=== PATIENT | female | born 1945 | race Caucasian/White ===

== ENCOUNTER → 2018-01-04 01:38 | Outpatient (CLI) | payer MEDICARE, SELFPAY ==
--- NOTE | 2018-01-04 13:03 | DI.REPORT_ITS ---
SYMPTOM/DIAGNOSIS: SCREENING, [facility] Z00.00 BILATERAL SCREENING MAMMOGRAM: Mammograms were interpreted according to the usual protocol including computer analysis with CAD system, tomosynthesis and C view imaging. Comparison is made with exams from 2013 through 2016. The breasts are composed of scattered fibroglandular densities, breast density category B. There are no suspicious masses or suspicious microcalcifications. Benign calcifications are again noted bilaterally. IMPRESSION: Category 2-B, negative mammogram with benign findings. Routine screening is recommended. SA ASSESSMENT OF FINDINGS: Negative with benign findings. Category 2. Patient will receive a letter notifying them of these results. BI-RADS category B. There are scattered areas of fibroglandular density.
== END ==
PROVIDERS: PCP Family Medicine; Visit Provider Family Medicine
DX: Z12.31 Encounter for screening mammogram for malignant neoplasm of breast (principal)
CPT/HCPCS: 77063; 77067

== ENCOUNTER 2019-01-26 13:12 | Outpatient (CLI) | payer MEDICARE, SELFPAY ==
[2019-01-26 13:45] LABS: HCT 39.6 % (36.0-46.0); HGB 12.8 g/dL (12.0-15.5); Mean Corp. HGB Concentration 32.3 g/dL (32.0-36.0); Mean Corpuscular Hemoglobin 29.2 pg (27.0-33.0); Mean Corpuscular Volume 90.2 fL (80-95); Mean Platelet Volume 11.3 fL (8.0-11.0); Platelet Count 257 x1000/uL (130-400); RBC 4.39 m/cumm (4.00-5.20); RBC Distribution Width 13.5 % (11.7-14.6); White Blood Cell Count 10.48 k/cumm (4.4-10.8)
[2019-01-26 14:03] LABS: Hemoglobin A1C 5.9 % (4.5-6.2)
[2019-01-26 14:28] LABS: ALT 29 U/L (14-59); AST 18 U/L (15-37); Alkaline Phosphatase 96 U/L (46-116); Anion Gap 9.1 mmol/L (3-11); BUN 17 mg/dL (7-18); Bilirubin, Total 0.2 mg/dL (0.2-1.0); CO2 29.9 mmol/L (21.0-32.0); CREATININE 0.68 mg/dL (0.55-1.02); Calcium 9.5 mg/dL (8.5-10.1); Chloride 105 mmol/L (98-107); Glucose 86 mg/dL (70-100); Magnesium 1.6 mg/dL (1.8-2.4); PHOSPHORUS 3.6 mg/dL (2.6-4.7); Potassium 3.9 mmol/L (3.5-5.1); Sodium 144 mmol/L (136-145); Uric Acid 5.9 mg/dL (2.6-6.0)
[2019-01-27 11:05] LABS: Parathyroid Hormone,Intact 49 pg/ml (19-88)
== END 2019-01-26 13:32 ==
PROVIDERS: PCP Family Medicine; Visit Provider Family Medicine
DX: E04.1 Nontoxic single thyroid nodule (principal); E21.0 Primary hyperparathyroidism; R73.03 Prediabetes; E53.8 Deficiency of other specified B group vitamins; R27.0 Ataxia, unspecified
CPT/HCPCS: 36415; 80053; 85027; 83036; 83735; 83970; 84100; 84550

== ENCOUNTER 2019-03-17 01:36 | Outpatient (CLI) | payer MEDICARE, SELFPAY ==
--- NOTE | 2019-03-17 11:22 | DI.MAMMO_ITS ---
EXAM: MAMMO SCREENING CLINICAL HISTORY: SCREENING, Z12.31 TECHNIQUE: Mammograms were interpreted according to the usual protocol including computer analysis w [employer] CAD system, tomosynthesis and C-view imaging. COMPARISON: [id number] FINDINGS: The breasts are composed of scattered areas of fibroglandular density, breast density category B. No suspicious masses or microcalcifications are seen. There has been no significant change when compared with the prior examinations. IMPRESSION: Category 1, negative mammogram. Yearly screening mammography is recommended. BI-RADS Cat 1 - Negative Breast Density - Category B - Scattered areas of fibroglandular density
== END 2019-03-17 01:56 ==
PROVIDERS: PCP Family Medicine; Visit Provider Family Medicine
DX: Z12.31 Encounter for screening mammogram for malignant neoplasm of breast (principal)
CPT/HCPCS: 77063; 77067

== ENCOUNTER 2019-07-25 22:10 | Outpatient (REF) | payer MEDICARE, SELFPAY ==
[2019-07-25 19:09] LABS: Hemoglobin A1C 5.8 % (3.8-5.6)
[2019-07-25 19:29] LABS: Vitamin D 25 Total 42.1 ng/ml (30-100)
[2019-07-25 19:32] LABS: Anion Gap 10.2 mmol/L (3-11); BUN 17 mg/dL (7-18); CO2 28.8 mmol/L (21.0-32.0); CREATININE 0.64 mg/dL (0.55-1.02); Calcium 9.9 mg/dL (8.5-10.1); Chloride 106 mmol/L (98-107); Glucose 88 mg/dL (74-106); Potassium 3.9 mmol/L (3.5-5.1); Sodium 145 mmol/L (136-145); Vitamin B12 899 pg/mL (193-986)
== END 2019-07-25 22:30 ==
LOC: NCHCN 22:10
PROVIDERS: PCP Family Medicine; Visit Provider Family Medicine
DX: E53.8 Deficiency of other specified B group vitamins (principal); R73.03 Prediabetes; I10 Essential (primary) hypertension; E55.9 Vitamin D deficiency, unspecified
CPT/HCPCS: 80048; 82306; 82607; 83036

== ENCOUNTER 2020-01-20 09:28 | Outpatient (REF) | payer MEDICARE, SELFPAY ==
[2020-01-20 17:13] LABS: BUN 16 mg/dL (7-18); CREATININE 0.67 mg/dL (0.55-1.02); Chloride 106 mmol/L (98-107); Glucose 91 mg/dL (74-106); Potassium 4.2 mmol/L (3.5-5.1); Sodium 143 mmol/L (136-145); TSH (W/Ref FT4) 2.06 uIU/mL (0.36-3.74)
[2020-01-20 17:14] LABS: Hemoglobin A1C 5.5 % (<5.7)
== END 2020-01-20 09:48 ==
LOC: NCHCN 09:28
PROVIDERS: PCP Family Medicine; Visit Provider Family Medicine
DX: E04.1 Nontoxic single thyroid nodule (principal); E21.0 Primary hyperparathyroidism; R73.03 Prediabetes
CPT/HCPCS: 80048; 83036; 84443

== ENCOUNTER 2021-07-31 17:27 | Outpatient (REF) | payer MEDICARE, SELFPAY ==
[2021-07-31 14:34] LABS: HCT 40.7 % (36.0-46.0); HGB 12.8 g/dL (11.2-15.7); MCH 28.3 pg (27.0-33.0); MCHC 31.4 % (32.0-36.0); MCV 89.8 fL (80-95); MPV 12.4 fL (8.0-11.0); Platelet Count 252 10^3/uL (130-400); RBC 4.53 10^6/uL (3.93-5.22); RDW 13.7 % (11.7-14.6); RDW-SD 45.3 fL; WBC 7.42 10^3/uL (4.4-10.8)
[2021-07-31 15:03] LABS: Anion Gap 7.4 mmol/L (3-11); BUN 21 mg/dL (7-18); CO2 27.6 mmol/L (21.0-32.0); CREATININE 0.7 mg/dL (0.55-1.02); Calcium 9.8 mg/dL (8.5-10.1); Chloride 110 mmol/L (98-107); Glucose 92 mg/dL (74-106); PHOSPHORUS 3.2 mg/dL (2.6-4.7); Potassium 4.3 mmol/L (3.5-5.1); Sodium 145 mmol/L (136-145); Uric Acid 6.8 mg/dL (2.6-6.0)
[2021-07-31 15:07] LABS: Hemoglobin A1C 5.7 % (<5.7)
[2021-07-31 16:02] LABS: Vitamin B12 987 pg/mL (193-986)
[2021-08-01 00:44] LABS: Vitamin D 25 Total 45.2 ng/mL (30-100)
[2021-08-01 10:26] LABS: Parathyroid Hormone,Intact 71 pg/mL (19-88)
== END 2021-07-31 17:28 | disposition home or self-care (01) ==
LOC: NCHCN 17:27
PROVIDERS: PCP Family Medicine; Visit Provider Family Medicine
DX: R73.03 Prediabetes (principal); E21.0 Primary hyperparathyroidism; E53.8 Deficiency of other specified B group vitamins; I10 Essential (primary) hypertension; E04.1 Nontoxic single thyroid nodule; M10.9 Gout, unspecified
CPT/HCPCS: 80048; 82306; 85027; 82607; 83036; 83970; 84100; 84550

== ENCOUNTER 2021-08-30 00:21 | Outpatient (CLI) | payer MEDICARE, SELFPAY ==
--- NOTE | 2021-08-30 | DI.DEXA_ITS ---
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 No compression deformities identified. Left hip: Total T-Score: -0.9 Total Z-Score: 0.9 T- and Z-scores: Within normal limits. Lumbar Spine: Total T-Score: 0.4 Total Z-Score: 2.8 T- and Z-scores: Within normal limits. IMPRESSION: No evidence of osteoporosis.
--- NOTE | 2021-08-30 | DI.MAMMO_ITS ---
Exam(s) MAMMO SCREENING EXAM: MAMMO SCREENING CLINICAL HISTORY: SCREENING, Z12.31 TECHNIQUE: Bilateral full field digital CC and MLO mammographic images were obtained with 3D tomosyn thesis and utilizing computer aided detection (CAD). COMPARISON: Available for comparison. FINDINGS: Masses/Architectural Distortion: None seen. Microcalcifications: No suspicious pleomorphic-type are seen. Benign type calcifications are seen in both breasts. Skin Thickening/Nipple Retraction: None. IMPRESSION: 1. No significant interval change with no specific features of malignancy noted. 2. Unless there is more urgent need, screening mammography is recommended, as per [employer] guidelines. BI-RADS Category 2 - Benign Findings Breast Density - Category B - Scattered areas of fibroglandular density Breast density category C or D implies that the patient has dense breast tissue. Dense breast tissue is very common and is not abnormal but dense breast tissue can make it harder to find cancer on a ma mmogram. Also, dense breast tissue may increase their breast cancer risk. This information about the result of the mammogram report was provided to the patient to raise their awareness. Use this report when you speak with the patient about their risks for breast cancer, which includes their family hist ory. At that time, you may recommend for more screening tests (Ultrasound or MRI) as they might be us eful based on their risk. A negative radiographic report should not delay biopsy if a dominant or clinically suspicious mass is present. Up to ten percent of cancers are not identified on mammography. A negative report may reinforce clinical impression. Adenosis and dense breasts may obscure an underlying neoplasm. False positive reports average 6 to 10%. Patient will receive a letter notifying them of these results.
== END 2021-08-30 00:41 ==
PROVIDERS: PCP Family Medicine; Visit Provider Family Medicine
DX: Z12.31 Encounter for screening mammogram for malignant neoplasm of breast (principal); E21.0 Primary hyperparathyroidism; Z13.820 Encounter for screening for osteoporosis
CPT/HCPCS: 77063; 77067; 77080

== ENCOUNTER 2022-07-31 10:12 | Outpatient (REF) | payer MEDICARE, SELFPAY ==
[2022-08-01 11:07] LABS: Anion Gap 5.5 mmol/L (3-11); BUN 16 mg/dL (7-18); CO2 29.5 mmol/L (21.0-32.0); CREATININE 0.7 mg/dL (0.55-1.02); Calcium 10.2 mg/dL (8.5-10.1); Chloride 107 mmol/L (98-107); Estimated GFR 89.58 (mL/min/1.73m2); Glucose 87 mg/dL (74-106); Potassium 4.2 mmol/L (3.5-5.1); Sodium 142 mmol/L (136-145)
[2022-08-01 11:13] LABS: Hemoglobin A1C 5.5 % (<5.7)
== END 2022-07-31 10:13 | disposition home or self-care (01) ==
LOC: NCHCN 10:12
PROVIDERS: PCP Family Medicine; Visit Provider Family Medicine
DX: I10 Essential (primary) hypertension (principal); R73.03 Prediabetes
CPT/HCPCS: 80048; 83036

== ENCOUNTER 2023-01-09 09:39 | Outpatient (REF) | payer MEDICARE, SELFPAY ==
[2023-01-09 17:09] LABS: Anion Gap 8.8 mmol/L (3-11); BUN 13 mg/dL (7-18); CO2 29.2 mmol/L (21.0-32.0); CREATININE 0.6 mg/dL (0.55-1.02); Calcium 9.9 mg/dL (8.5-10.1); Chloride 107 mmol/L (98-107); Estimated GFR 92.39 (mL/min/1.73m2); Glucose 86 mg/dL (74-106); Potassium 4.2 mmol/L (3.5-5.1); Sodium 145 mmol/L (136-145)
== END 2023-01-09 09:40 | disposition home or self-care (01) ==
LOC: NCHCN 09:39
PROVIDERS: PCP Family Medicine; Visit Provider Family Medicine
DX: E83.52 Hypercalcemia (principal); I10 Essential (primary) hypertension; R73.03 Prediabetes
CPT/HCPCS: 80048

== ENCOUNTER → 2023-05-26 01:42 | Outpatient (CLI) | payer MEDICARE, SELFPAY ==
--- NOTE | 2023-05-26 14:06 | DI.MAMMO_ITS ---
Exam(s) MAMMO SCREENING EXAM: MAMMO SCREENING CLINICAL HISTORY: SCREENING, Z12.31. TECHNIQUE: Bilateral full field digital CC and MLO mammographic images were obtained with 3D tomosyn thesis and utilizing computer aided detection (CAD). COMPARISON: Prior mammograms were reviewed. FINDINGS: No new findings in the right breast. In the left breast there is a E 5 x 4 mm asymmetric density located 3 cm in from the nipple on the ML O view. Previously present. Spot compression view and ultrasound recommended. There are no malignant-appearing microcalcification groups. Scattered benign-appearing calcification s are again noted in both breasts. There is no significant architectural distortion nor skin thickening-retraction. IMPRESSION: 1. No radiographic evidence of malignancy in the right breast. 2. Asymmetric density-possible nodule in the left breast as described above. Recommend spot compress ion left breast MLO view and breast ultrasound. BI-RADS Category 0 - Assessment Incomplete: Need additional imaging evaluation Breast Density - Category B - Scattered areas of fibroglandular density Breast density Category C or D implies that the patient has dense breast tissue. Dense breast tissue can make it harder to find cancer on a mammogram. Dense breast tissue is also associated with an incr eased risk of breast cancer. This information about the result of the mammogram report was provided to the patient to raise their awareness. Use this report when you speak with the patient about their risks for breast cancer, which includes their family history. At that time, you may recommend additional screening tests (Ultrasoun d or MRI) as these tests may add significant information. A negative radiographic report should not delay biopsy if a dominant or clinically suspicious mass is present. Up to ten percent of cancers are not identified on mammography. A negative report may reinforce clinical impression. Adenosis and dense breasts may obscure an underlying neoplasm. False positive reports average 6 to 10%. Patient will receive a letter notifying them of these results.
== END ==
PROVIDERS: PCP Family Medicine; Visit Provider Family Medicine
DX: Z12.31 Encounter for screening mammogram for malignant neoplasm of breast (principal); R92.8 Other abnormal and inconclusive findings on diagnostic imaging of breast
CPT/HCPCS: 77063; 77067

== ENCOUNTER → 2023-05-28 02:35 | Outpatient (CLI) | payer MEDICARE, SELFPAY ==
--- NOTE | 2023-05-28 | DI.US_ITS ---
Exam(s) MAMMO SCREEN CALL BACK UNI US BREAST LT COMPLETE EXAM: MAMMO SCREEN CALL BACK UNI-LEFT AND COMPLETE LEFT BREAST ULTRASOUND CLINICAL HISTORY: F/U MAMMO, R92.8.ASYMMETRIC DENSITY,? NODULE. TECHNIQUE: Unilateral LEFT BREAST spot mammographic images obtained with 3D tomosynthesisand [employer]izi ng computer aided detection (CAD). . Complete LEFT breast Ultrasound was also performed, including all 4 quadrants, the retroareolar regio n, and the ipsilateral axilla. COMPARISON: Prior mammograms were reviewed. This additional imaging was performed due to findings described on the recent screening mammogram of 05/26/2023. FINDINGS: DIAGNOSTIC MAMMOGRAM: Additional mammographic views performed todayrender this area less concerning and similar in appearan ce to prior mammograms. COMPLETE LEFT BREAST ULTRASOUND: Ultrasound performed today reveals no significant focal findings in all 4 quadrants. Scanning of the ipsilateral axilla reveals no significant adenopathy. IMPRESSION: 1. No radiographic evidence of malignancy. 2. No significant findings on left breast ultrasound Appropriate follow-up is to keep this patient on her yearly mammogram schedule, with earlier imaging if a self detected breast change is noted.. The patient was informed of these findings and recommendations by myself prior to leaving the departm ent today. BI-RADS Category 2 - Benign Findings Breast Density - Category B - Scattered areas of fibroglandular density Breast density Category C or D implies that the patient has dense breast tissue. Dense breast tissue can make it harder to find cancer on a mammogram. Dense breast tissue is also associated with an incr eased risk of breast cancer. This information about the result of the mammogram report was provided to the patient to raise their awareness. Use this report when you speak with the patient about their risks for breast cancer, which includes their family history. At that time, you may recommend additional screening tests (Ultrasoun d or MRI) as these tests may add significant information. A negative radiographic report should not delay biopsy if a dominant or clinically suspicious mass is present. Up to ten percent of cancers are not identified on mammography. A negative report may reinforce clinical impression. Adenosis and dense breasts may obscure an underlying neoplasm. False positive reports average 6 to 10%. Patient will receive a letter notifying them of these results.
== END ==
PROVIDERS: PCP Family Medicine; Visit Provider Family Medicine
DX: R92.8 Other abnormal and inconclusive findings on diagnostic imaging of breast (principal); Z12.31 Encounter for screening mammogram for malignant neoplasm of breast
CPT/HCPCS: 76642; 77063; 77067

== ENCOUNTER 2023-11-18 15:55 | Outpatient (REF) | payer MEDICARE, SELFPAY ==
[2023-11-18 19:20] LABS: Hemoglobin A1C 5.6 % (<5.7)
[2023-11-18 19:30] LABS: ALT 24 U/L (14-59); AST 16 U/L (15-37); Albumin 4.2 g/dL (3.4-5.0); Alkaline Phosphatase 87 U/L (46-116); BUN 12 mg/dL (7-18); CREATININE 0.6 mg/dL (0.55-1.02); Calcium 10.2 mg/dL (8.5-10.1); Chloride 108 mmol/L (98-107); Estimated GFR 91.82 (mL/min/1.73m2); Glucose 96 mg/dL (74-106); Potassium 3.9 mmol/L (3.5-5.1); Sodium 146 mmol/L (136-145); TSH (W/Ref FT4) 1.19 uIU/mL (0.36-3.74); Total Protein 7.2 g/dL (6.4-8.2)
== END 2023-11-18 15:56 | disposition home or self-care (01) ==
LOC: NCHCN 15:55
PROVIDERS: PCP Family Medicine; Visit Provider Family Medicine
DX: I10 Essential (primary) hypertension (principal); E04.1 Nontoxic single thyroid nodule; R73.03 Prediabetes
CPT/HCPCS: 80053; 83036; 84443

== ENCOUNTER 2023-12-22 09:54 | Outpatient (REF) | payer MEDICARE, SELFPAY ==
--- NOTE | 2023-12-22 09:35 | TONG_PTH ---
PATIENT: Deb Mccall LOC: N U#:[id number] AGE/SX: 78/F ROOM: RE12/22/[address]: Wero Wiggins MD : 1945 BED: DIS: 12/22/2023 SPEC #: [id number] RECD: 12/22/23 13:01 STATUS: DORITA RESevero #: [id number] CHARLES: 12/22/23 09:[address]: Wero Wiggins DEPT: Surgical Specimen RECD BY: Connie Holbrook ENTERED: 12/22/23 13:03 SP TYPE: TORSTEN JAMA DR: Tomeka Castañeda Tissues: 1 - TONGUE BIOPSY Procedures: GROSS AND MICRO LEVEL 4 Comments: [id number]
== END 2023-12-22 09:55 | disposition home or self-care (01) ==
LOC: LBN 09:54
PROVIDERS: PCP Family Medicine; Visit Provider Otolaryngology
DX: K13.21 Leukoplakia of oral mucosa, including tongue (principal)
CPT/HCPCS: 88305

== ENCOUNTER 2024-03-22 17:45 | Emergency (ER) | payer MEDICARE, SELFPAY ==
[2024-03-22 17:49] VITALS: BP 147/65; PULSE 93; RESP 12; TEMP 36.6; O2SAT 99
--- NOTE | 2024-03-22 17:59 | ED.GENADUL_ITS ---
Discharge Plan Disposition Patient Disposition: Home Condition: Stable Discharge Details Clinical Impression: Accident due to mechanical fall without injury Primary Care Provider: Tomeka Castañeda ED Provider: Leopoldo Gonzalez Home Meds and New Rx's Prescriptions: Continued betamethasone dipropionate 15 GM ointment 15 g Topical BID cyanocobalamin (vitamin B-12) 2,500 MCG tablet 1,200 mcg PO DAILY furosemide 20 mg tablet 10 mg PO DAILY amlodipine 5 MG tablet 5 mg PO DAILY lisinopril 40 MG tablet 40 mg PO DAILY Fish Oil 500 MG capsule 10,000 mg PO DAILY magnesium oxide 400 MG capsule 400 mg PO DAILY cholecalciferol (vitamin D3) 1,000 UNITS tablet 2,000 units PO DAILY prednisone 5 MG tablet 5 mg PO DAILY PRN PRN Discharge Instructions Instructions: Preventing Falls ED Additional Instructions: You were seen in the emergency department for your mechanical fall with left knee hip and head pain, all your imaging was negative for any acute injury. To help with your sciatica I provided you with a physical therapy referral, you may take 650 mg of Tylenol every 6 hours, you can also purchase qdod-mhw-vnuheeg Voltaren gel to trial rubbing it on the area but be careful as you are allergic to some NSAIDs use a small amount at first. You can apply an qbtq-jri-bwmeihz lidocaine patch to the area, please follow-up with orthopedics for worsening joint pain and return to the ER for any emergent concerns. Referrals: Tomeka Castañeda MD [Primary Care Provider] - Discharge Data Discharge Date/Time-TO BE ENTERED AT DEPARTURE: 03/22/24 19:28 HPI General Date/Time Provider Initiated Documentation: 03/22/24 17:56 . HPI Narrative: 78 year-old female presents to ED today by POV/ambulating with a chief complaint of ground-level fall, states her sciatica was acting up, her knee to give out, fell with minor pain to the left knee, left hip, hit the back of her head with onset just prior to arrival. Quality described as posterior thigh pain consistent with sciatica that caused the fall, denies severe pain at the hip or knee, denies LOC, no radiation to large scalp hematoma, states she hit her occiput and has been mildly nauseous and dizzy, denies midline neck tenderness, able to walk and ambulate and, denies chest pain or palpitations prior to fall. Severity is described as mild at this time. Palliating factors include nothing specific. Provoking factors include nothing specific. Patient not anticoagulated. Related Data Home Medications ?Medication ?Instructions ?Recorded ?Confirmed amlodipine 5 mg tablet 5 mg PO DAILY 09/16/13 03/22/24 lisinopril 40 mg tablet 40 mg PO DAILY 09/16/13 03/22/24 magnesium oxide 400 mg PO DAILY 09/16/13 03/22/24 omega-3 fatty acids 500 mg capsule 10,000 mg PO DAILY 09/16/13 03/22/24 (Fish Oil) cholecalciferol (vitamin D3) 25 2,000 units PO DAILY 07/09/15 03/22/24 mcg (1,000 unit) tablet prednisone 5 mg tablet 5 mg PO DAILY PRN PRN 08/20/16 03/22/24 betamethasone dipropionate 0.05 % 15 g topical BID 11/17/17 03/22/24 topical ointment cyanocobalamin (vitamin B-12) 1,200 mcg PO DAILY 11/17/17 03/22/24 2,500 mcg tablet furosemide 20 mg tablet 10 mg PO DAILY 09/03/23 03/22/24 Allergies Allergy/AdvReac Type Severity Reaction Status Date / Time ibuprofen Allergy Intermediate Unknown Unverified 03/22/24 17:54 latex Allergy Mild Skin Rash Unverified 03/22/24 17:54 atenolol AdvReac Intermediate Circulation Unverified 03/22/24 17:54 reaction Lkttvoy-FFI-FgM Reductase AdvReac Intermediate muscle Unverified 03/22/24 17:54 Inhibitor (Nhitmwl-Cyz-Wvi weakness Reductase Inhibitor) NSAIDS (Non-Steroidal AdvReac Mild swelling Unverified 03/22/24 17:54 Anti-Inflamma at higher doses General Stated Complaint: Trauma RENETTA: 3 Review of Systems All systems reviewed & are unremarkable except as noted in HPI and below Exam Narrative Exam Narrative: GENERAL APPEARANCE: Well-nourished, non-toxic, awake and alert, atraumatic, no acute distress. SKIN: Warm, pink, dry, intact, without rashes/lesions/ulcerations. HEAD: Normocephalic, atraumatic-very small left occipital scalp hematoma without bruising, no Roman sign or raccoon eyes, normal hair distribution for gender /age. EYES: Normal conjunctiva, no exudates on lids/lashes. ENT: Nares patent, no circumoral cyanosis, no facial swelling NECK: Supple, trachea midline, painless cervical ROM, no midline vertebral ten derness. LUNGS/CHEST: Lungs CTA bilaterally, non-labored respirations, normal A/P diameter, symmetrical expansion, no chest wall deformity HEART (CV/PV): Regular rate and rhythm without murmur, no peripheral edema, no JVD. ABDOMEN: Soft, non-distended, no guarding. MSK: Normal ROM, no swelling/deformity to bilateral UEs or LEs, moving all extremities without weakness, no cyanosis, spine midline without tenderness, normal curvature, tenderness without crepitus or swelling or deformity, very mild left hip tenderness, no midline lumbar vertebral tenderness Mild left knee NEURO: Mental Status AAOx4 - alert to person, place, time, events No facial droop, no forehead involvement. Motor: No focal weakness - strength 5/5 in bilateral UEs and L Es, proximal and distal, symmetric. Sensory: sensation intact to light touch globally. Gait normal: patient ambulated without ataxia into ED room. PSYCH: euthymic, cooperative, pleasant, appropriate speech Course Vital Signs Vital signs: Vital Signs Temperature 36.6 C 03/22/24 17:49 Pulse 93 H 03/22/24 17:49 Respiratory Rate 12 03/22/24 17:49 Blood Pressure 147/65 H 03/22/24 17:49 Pulse Oximetry 99 03/22/24 17:49 Temperature 36.6 C 03/22/24 17:49 Temperature Source Oral 03/22/24 17:49 Pulse 93 H 03/22/24 17:49 Respiratory Rate 12 03/22/24 17:49 Blood Pressure 147/65 H 03/22/24 17:49 Blood Pressure Position Sitting 03/22/24 17:49 Pulse Oximetry 99 03/22/24 17:49 Oxygen Delivery Method Room Air 03/22/24 17:49 Oxygen Flow Rate 0 03/22/24 17:49 Pain Level 3 03/22/24 17:49 Medical Decision Making This dictation utilizes zuxoy-ec-exzi dictation software and may contain unedited grammatical errors. 78 year-old female presents to ED today by POV/ambulating with a chief complaint of ground-level fall, states her sciatica was acting up, her knee to give out, fell with minor pain to the left knee, left hip, hit the back of her head with onset just prior to arrival. Quality described as posterior thigh pain consistent with sciatica that caused the fall, denies severe pain at the hip or knee, denies LOC, no radiation to large scalp hematoma, states she hit her occiput and has been mildly nauseous and dizzy, denies midline neck tenderness, able to walk and ambulate and, denies chest pain or palpitations prior to fall. Severity is described as mild at this time. Palliating factors include nothing specific. Provoking factors include nothing specific. Patient not anticoagulated. Patients' medical history: Sciatica, vertigo, gout, ataxia, hypertension. Family and social history: Noncontributory. Pertinent exam findings / vital signs include mild tenderness to left knee joint line tenderness, very mild left hip tenderness without crepitus, able to ambulate, no midline spinal tenderness, very small left occipital scalp hematoma, neuro intact. Differential / pathologies of concern include knee fracture, hip fracture, intracranial hemorrhage, sciatica, able to ambulate so unlikely severe lower extremity trauma. Diagnostic studies of: -CT head without, XR L hip, XR L knee-no intracranial hemorrhage no acute fractures. Interventions of: -Tylenol, Lidoderm patch, recommend a spot trial of Voltaren but stressed caution as the patient has some NSAID allergies. ED Course/Assessment/Plan: 78-year-old female had a brief shooting pain from her sciatica that caused her to have a ground-level fall having mild pain to her left knee and hip as well as bumping the occiput of her head and having dizziness and nausea, CT scan shows no intracranial bleeding, there is no fracture at the knee or hip, patient is not on anticoagulation and is able to ambulate, I did refer to physical therapy for sciatica improvement and recommended Tylenol and other symptomatic treatments for various pain. Findings not consistent with intracranial hemorrhage, fracture, neurovascular compromise, medical cause of fall. Disposition of accident due to mechanical fall without injury. Patient verbalized understanding of the plan and return to ED criteria and engaged in shared decision making. Medical Records Medical records reviewed: Yes I reviewed the patient's medical records. Imaging Data Radiologic Study: Attestation: I personally reviewed and interpreted this imaging study as follows: Imaging: CT Scan Radiologist's impression: EXAM: CT HEAD WO CLINICAL HISTORY: fall, headstrike, dizziness. TECHNIQUE: Imaging Protocol: Axial computed tomography images with coronal and sagittal reformatted images were created and reviewed COMPARISON: CT HEAD WITHOUT CONTRAST from 09/16/2013 FINDINGS: Ventricles and Extra axial spaces: Normal in size and morphology for the patient's age. Hemorrhage: None. Cerebral parenchyma: No evidence of acute infarct or mass. Midline shift: None. Brainstem/Cerebellum: Normal. Calvarium: No fracture. Hyperostosis frontalis interna. Visualized Paranasal sinuses:Clear. Mastoids: Clear. Soft Tissues: Unremarkable. ORBITS: Unremarkable. PITUITARY: Not enlarged. IMPRESSION: No acute intracranial process. Radiologic Study #2: Attestation: I personally reviewed and interpreted this imaging study as follows: Imaging: X-Ray Radiologist's impression: Exam: XR Left Hip Exam date and time: 03/22/2024 6:54 PM Age: 78 years old Clinical indication: Other: Left hip pain TECHNIQUE: Imaging protocol: Radiologic exam of the left hip. Views: 2 or 3 views hip with pelvis when performed. COMPARISON: No relevant prior studies available. FINDINGS: Bones/joints: Osseous alignment is normal. No acute fracture. Moderate degenerative changes in the lower lumbar spine Soft tissues: Unremarkable. IMPRESSION: No acute abnormality Dictated and Authenticated by: Abdelrahman Ordaz MD. Radiologic Study #3: Attestation: I personally reviewed and interpreted this imaging study as follows: Imaging: X-Ray Radiologist's impression: Exam: XR Left Knee Exam date and time: 03/22/2024 6:57 PM Age: 78 years old Clinical indication: Pain; Knee; Left TECHNIQUE: Imaging protocol: Radiologic exam of the left knee. Views: 3 views. COMPARISON: No relevant prior studies available. FINDINGS: Bones/joints: Osseous alignment is normal. No acute fracture or joint fluid. Moderate joint space narrowing and osteophyte formation in the patellofemoral compartment. Moderate spurring of the tibial spines. Soft tissues: Normal. IMPRESSION: Moderate osteoarthritis Dictated and Authenticated by: Abdelrahman Ordaz MD. Quality:SDOH Health Related Social Needs: No Data to Display PFSH All Active Problems (Updated 03/22/24 @ 19:07 by MONIKA Noyola) Accident due to mechanical fall without injury (Acute) Oral leukoplakia (Acute) Conductive hearing loss, external ear (Acute) Impacted cerumen, right ear (Acute) Hypertension (Chronic) Medical History Stress fracture of foot Preretinal fibrosis Shingles Vitamin D deficiency Leg weakness, bilateral Eczema Vertigo Prediabetes Hyperparathyroidism Thyroid nodule Chronic fatigue Vitamin B 12 deficiency Right thyroid nodule Preretinal fibrosis, bilateral Hyperlipidemia Ataxia Gout Oral lichen planus Surgical History History of wisdom tooth extraction History of tonsillectomy Colonoscopy - IV Sedation 2004 Family History Mother , d. 92 Hypertension Osteoporosis Diabetes Father , d. 69, prostate cancer Prostate cancer Arthritis COPD (chronic obstructive pulmonary disease) Brother Prostate cancer Sister Hypertension Son Borderline hypertension Social History Smoking/Tobacco Use Status: Never Smoking risk assessment performed?: Yes Alcohol Intake: former Drug use: Never Household members: none Housing: house Number of Children: 1 current occupation: retired nurse, [employer] What is your relationship status?: Panel score (0-1 are the most socially isolated patients): 0 Do you feel safe in your relationship?: Yes
--- NOTE | 2024-03-22 18:02 | DI.RAD_ITS ---
Exam(s) XR KNEE LT 3V AP,LAT,MIGUEL EXAM: XR KNEE LT 3V AP,LAT,MIGUEL CLINICAL HISTORY: L knee pain. TECHNIQUE: 2D digital imaging was performed of the left knee. Three images were obtained. AP, late ral and PA tunnel views were obtained. COMPARISON: No exams were available for comparison FINDINGS: BONES: No acute fracture is present. No bony destructive lesion is seen. There is enthesophyte at th e superior patella. JOINTS: There are marked arthritic changes seen at the patellofemoral joint characterized by joint sp sandra narrowing and osteophytes. There is a small joint effusion. There is mild narrowing of the medi al femoral tibial joint. No loose body. SOFT TISSUE: Normal. IMPRESSION: 1. Moderate arthrosis of the knee, particularly at the patellofemoral joint. 2. No acute fracture or dislocation. DATA REPOSITORY: RADIATION DOSE DELIVERED:
--- NOTE | 2024-03-22 18:48 | DI.CT_ITS ---
Exam(s) CT HEAD WO EXAM: CT HEAD WO CLINICAL HISTORY: fall, headstrike, dizziness. TECHNIQUE: Imaging Protocol: Axial computed tomography images with coronal and sagittal reformatted images were created and reviewed COMPARISON: CT HEAD WITHOUT CONTRAST from 09/16/2013 FINDINGS: Ventricles and Extra axial spaces: Normal in size and morphology for the patient's age. Hemorrhage: None. Cerebral parenchyma: No evidence of acute infarct or mass. Midline shift: None. Brainstem/Cerebellum: Normal. Calvarium: No fracture. Hyperostosis frontalis interna. Visualized Paranasal sinuses:Clear. Mastoids: Clear. Soft Tissues: Unremarkable. ORBITS: Unremarkable. PITUITARY: Not enlarged. IMPRESSION: No acute intracranial process. RADIATION DOSE DELIVERED: Total DLP DATA REPOSITORY: All CT scans at this facility are submitted to the National Radiology Data Registry (NRDR) Dose Index Registry (DIR) with the [employer] ([employer]). RADIATION OPTIMIZATION: All CT scans at this facility use at least one of these dose optimization te chniques: automated exposure control; mA and/or kV adjustment per patient size (includes targeted exa ms where dose is matched to clinical indication); or iterative reconstruction.
--- NOTE | 2024-03-22 18:59 | DI.RAD_ITS ---
Exam(s) XR HIP LT COMPLETE AP PELVIS EXAM: XR HIP LT COMPLETE AP PELVIS CLINICAL HISTORY: L hip pain. TECHNIQUE: 2D digital imaging was performed of the left hip. Three views were obtained. AP pelvis and lateral left hip views were obtained. COMPARISON: No exams were available for comparison FINDINGS: BONES: No acute fracture is present. No bony destructive lesion is seen. JOINTS: No dislocation present. The hips are well maintained. There are degenerative changes seen in the lower lumbar spine. The sacroiliac joints and symphysis pubis are intact. SOFT TISSUE: Normal. IMPRESSION: No acute abnormalities identified. DATA REPOSITORY: RADIATION DOSE DELIVERED:
[2024-03-22 19:28] VITALS: BP 156/53; PULSE 82; RESP 16; TEMP 36.7; O2SAT 98
--- NOTE | 2024-03-22 19:40 | DI.VRAD_ITS ---
PROCEDURE INFORMATION: Exam: XR Left Hip Exam date and time: 03/22/2024 6:54 PM Age: 78 years old Clinical indication: Other: Left hip pain TECHNIQUE: Imaging protocol: Radiologic exam of the left hip. Views: 2 or 3 views hip with pelvis when performed. COMPARISON: No relevant prior studies available. FINDINGS: Bones/joints: Osseous alignment is normal. No acute fracture. Moderate degenerative changes in the lower lumbar spine Soft tissues: Unremarkable. IMPRESSION: No acute abnormality Dictated and Authenticated by: Abdelrahman Ordaz MD. Ordering:REGINA Mina MD
--- NOTE | 2024-03-22 19:41 | DI.VRAD_ITS ---
PROCEDURE INFORMATION: Exam: XR Left Knee Exam date and time: 03/22/2024 6:57 PM Age: 78 years old Clinical indication: Pain; Knee; Left TECHNIQUE: Imaging protocol: Radiologic exam of the left knee. Views: 3 views. COMPARISON: No relevant prior studies available. FINDINGS: Bones/joints: Osseous alignment is normal. No acute fracture or joint fluid. Moderate joint space narrowing and osteophyte formation in the patellofemoral compartment. Moderate spurring of the tibial spines. Soft tissues: Normal. IMPRESSION: Moderate osteoarthritis Dictated and Authenticated by: Abdelrahman Ordaz MD. Ordering:REGINA Mina MD
== END 2024-03-22 19:28 | disposition home or self-care (01) ==
PROVIDERS: Emergency Provider Physician Assistant; PCP Family Medicine
DX: R51.9 Headache, unspecified (principal); M25.562 Pain in left knee; M25.552 Pain in left hip; I10 Essential (primary) hypertension; E78.5 Hyperlipidemia, unspecified; W18.39XA Other fall on same level, initial encounter; Y93.01 Activity, walking, marching and hiking
CPT/HCPCS: 73562; 99284; 70450; 73502

== ENCOUNTER 2024-12-05 14:01 | Outpatient (REF) | payer MEDICARE, SELFPAY ==
[2024-12-05 21:09] LABS: HCT 42.1 % (36.0-46.0); HGB 13.5 g/dL (11.2-15.7); MCH 28.7 pg (27.0-33.0); MCHC 32.1 % (32.0-36.0); MCV 89 fL (80-95); MPV 12.6 fL (8.0-11.0); Platelet Count 232 10^3/uL (130-400); RBC 4.71 10^6/uL (3.93-5.22); RDW 13.2 % (11.7-14.6); RDW-SD 43.5 fL; WBC 8.36 10^3/uL (4.4-10.8)
[2024-12-05 21:23] LABS: Hemoglobin A1C 5.4 % (<5.7)
[2024-12-05 21:36] LABS: ALT 24 U/L (14-59); AST 17 U/L (15-37); Albumin 4.2 g/dL (3.4-5.0); Alkaline Phosphatase 93 U/L (46-116); Anion Gap 9.1 mmol/L (3-11); BUN 15 mg/dL (7-18); Bilirubin, Total 0.4 mg/dL (0.2-1.0); CO2 29.9 mmol/L (21.0-32.0); Calcium 10.0 mg/dL (8.5-10.1); Chloride 107 mmol/L (98-107); Estimated GFR 91.25 (mL/min/1.73m2); Glucose 94 mg/dL (74-106); Potassium 3.9 mmol/L (3.5-5.1); Sodium 146 mmol/L (136-145); TSH (W/Ref FT4) 1.14 uIU/mL (0.36-3.74); Total Protein 7.1 g/dL (6.4-8.2)
== END 2024-12-05 14:02 | disposition home or self-care (01) ==
LOC: NCHCN 14:01
PROVIDERS: PCP Family Medicine; Visit Provider Family Medicine
DX: R73.03 Prediabetes (principal); I10 Essential (primary) hypertension
CPT/HCPCS: 80053; 85027; 83036; 84443

== ENCOUNTER 2024-12-28 01:28 | Outpatient (CLI) | payer MEDICARE, SELFPAY ==
--- NOTE | 2024-12-28 | DI.MRI_ITS ---
Exam(s) MR LUMBAR SPINE WO EXAM: MR LUMBAR SPINE WO CLINICAL HISTORY: Lt side sciatica, M54.32. TECHNIQUE: Multiplanar multisequence MRI of the Lumbar spine was performed. COMPARISON: MR MRI - LUMBAR SPINE WO CONTRAST from 06/12/2016 FINDINGS: Bones: The last intervertebral disc space is designated the L5/S1 level for the numbering purpose of this examination. The vertebral body heights are well maintained. Alignment is satisfactory. There are round T1 and T2 hyperintense foci in the T12, L1 and L2 consistent with hemangioma. Mild degenerative endplate signal changes are seen at L3-L4 and L5-S1. Cord: It is of normal size and signal intensity. T12-L1: No disc herniations or bulges are present. No central spinal canal or neural foraminal stenosis. L1-2: No disc herniations or bulges are present. No central spinal canal or neural foraminal stenosis. L2-3: No disc herniations or bulges are present. No central spinal canal or neural foraminal stenosis. L3-4: No disc herniations or bulges are present. No central spinal canal or neural foraminal stenosis. L4-5: There is a mild diffuse disc bulge. There are degenerative changes of the facets and hypertrophy of the ligamentum flavum.There is no significant central spinal canal stenosis. There is mild narrowing of the neural foramen bilaterally. L5-S1: No disc herniations or bulges are present. There are degenerative changes of the facets, left greater than right.There is no significant central spinal canal stenosis. There is moderately severe left neural foraminal stenosis. No significant right neural foraminal stenosis is present. Soft tissues: The visualized SI joints and sacrum are well maintained. The paraspinal soft tissues are unremarkable. Visualized abdominal organs: Incidental note is made of diverticulosis of the colon. There is a cystic structure in the left pelvis. Its location is suspicious for a left ovarian cyst. It measures at least 5 cm. There are simple cysts seen in the right kidney. No follow-up is recommended. IMPRESSION: 1. Degenerative changes seen at L5-S1 causing moderately severe left neural foraminal stenosis. 2. Degenerative changes at L4-L5 causing mild bilateral neural foraminal stenosis. 3. 5 cm cyst seen in the left pelvis suspicious for left ovarian cyst. This should be further evaluated with a pelvic ultrasound. Depending on the results of that examination, MRI of the pelvis should be considered in this postmenopausal patient. Unexpected findings DATA REPOSITORY:
== END 2024-12-28 01:48 ==
LOC: DI 01:28
PROVIDERS: PCP Family Medicine; Visit Provider Family Medicine
DX: M54.32 Sciatica, left side (principal); M99.63 Osseous and subluxation stenosis of intervertebral foramina of lumbar region
CPT/HCPCS: 72148

== ENCOUNTER 2025-01-26 03:04 | Outpatient (CLI) | payer MEDICARE, SELFPAY ==
--- NOTE | 2025-01-26 | DI.US_ITS ---
Exam(s) US PELVIS TRANSVAGINAL EXAM: US PELVIS TRANSVAGINAL CLINICAL HISTORY: LT OVARIAN CYST N83.202 TECHNIQUE: Ultrasound of the pelvis was performed both transabdominal and transvaginal. COMPARISON: MR MR LUMBAR SPINE WO from 12/28/2024 FINDINGS: UTERUS: Nongravid and anteverted Measures 5 cm length x 2.7 cm AP x 3.8 cm wide. There are no uterine fibroids. The endometrium is abnormally thickened for this age group measuring 8-9 mm. There is also a linear thin linear hyperechoic stripe in the anterior aspect the. There is no fluid in the endometrial canal. CERVIX: There are no obvious nabothian cysts. RIGHT OVARY: Right ovary was not able to be identified on this study LEFT OVARY: There is a cyst in the left adnexa measuring 4.6 x 3.2 x 3.6 cm which corresponds to what was seen incidentally on recent MRI of the lumbar spine and is most probably ovarian (although actual ovarian tissue was not discernible). This appears to be a simple cyst on ultrasound. There is no surrounding fluid in the ipsilateral adnexa. CUL-DE-SAC: No free fluid evident. IMPRESSION: 1. Abnormally thickened endometrium for this age group. Requires close follow- up to rule out endometrial malignancy. Also hyperechoic linear stripe seen in the anterior aspect of the endometrial cavity. 2. There is a 4.6 x 3.2 x 3.6 cm cyst in the left adnexa, presumably in the left ovary. This corresponds to the finding incidentally noted on recent lumbar spine MRI. There is no surrounding fluid around the left ovary nor elsewhere in the pelvis. Recommend appropriate referral. 3. Opposite-right ovary was not able to be identified on this study in this elderly patient DATA REPOSITORY:
== END 2025-01-26 03:24 ==
LOC: DI 03:04
PROVIDERS: PCP Family Medicine; Visit Provider Family Medicine
DX: N83.202 Unspecified ovarian cyst, left side (principal)
CPT/HCPCS: 76830; 76856

== ENCOUNTER 2025-02-20 03:43 | Outpatient (CLI) | payer MEDICARE, SELFPAY ==
[2025-02-20 11:20] LABS: Abs Immature Grans 0.04 10^3/uL (0.0-0.06); HCT 40.4 % (36.0-46.0); HGB 12.8 g/dL (11.2-15.7); Immature Grans % 0.5 %; MCH 28.8 pg (27.0-33.0); MCHC 31.7 % (32.0-36.0); MCV 91 fL (80-95); MPV 11.4 fL (8.0-11.0); Platelet Count 198 10^3/uL (130-400); RBC 4.44 10^6/uL (3.93-5.22); RDW 13.3 % (11.7-14.6); RDW-SD 44.6 fL; WBC 8.41 10^3/uL (4.4-10.8)
[2025-02-20 18:06] LABS: CEA <0.5 ng/mL (See Note)
[2025-02-20 18:16] LABS: CA 19-9 9 U/mL (<35)
[2025-02-20 18:21] LABS: CA 125 7 U/mL (<30)
== END 2025-02-20 03:44 | disposition home or self-care (01) ==
LOC: LBO 03:43
PROVIDERS: PCP Family Medicine; Visit Provider Obstetrics & Gynecology
DX: R19.04 Left lower quadrant abdominal swelling, mass and lump (principal); Z01.818 Encounter for other preprocedural examination
CPT/HCPCS: 36415; 77063; 77067; 86304; 86850; 86900; 86901; 82378; 85025; 86301

== ENCOUNTER 2025-02-22 06:10 | Day surgery (SDC) | payer MEDICARE, SELFPAY ==
[2025-02-22 06:36] VITALS: BP 139/63; PULSE 77; RESP 16; TEMP 36.5; O2SAT 99
[2025-02-22] MEDS: Lactated Ringers 1,000 ML 125 ML IV (06:56)
--- NOTE | 2025-02-22 07:00 | W.ANESPRE ---
General Info Date of Service Date Performed: 02/22/25 Height: 5 ft 2 in Weight: 74.6 kg Body Mass Index (BMI): 30.0 Surgical Procedure: Operation Date: 02/22/25 07:40 Proposed Procedure Side Surgeon p Dilation & Curettage with Hysteroscopy Marietta Silveira DO Meds Allergies and Home Medications Allergies Allergy/AdvReac Type Severity Reaction Status Date / Time ibuprofen Allergy Intermediate Unknown Verified 02/22/25 06:36 latex Allergy Mild Skin Rash Verified 02/22/25 06:36 diclofenac Allergy Unknown Other (See Verified 02/22/25 06:36 Comment) atenolol AdvReac Intermediate Circulation Verified 02/22/25 06:36 reaction Worpxar-WVV-ObS Reductase AdvReac Intermediate muscle Verified 02/22/25 06:36 Inhibitor (Mhqnihk-Rxw-Ebm weakness Reductase Inhibitor) NSAIDS (Non-Steroidal AdvReac Mild swelling Verified 02/22/25 06:36 Anti-Inflamma at higher doses Home Medication ?Medication ?Instructions ?Recorded amlodipine 5 mg tablet 5 mg PO HS 09/16/13 lisinopril 40 mg tablet 40 mg PO DAILY 09/16/13 magnesium oxide 400 mg PO DAILY 09/16/13 omega-3 fatty acids 500 mg capsule 10,000 mg PO DAILY 09/16/13 (Fish Oil) cholecalciferol (vitamin D3) 25 2,000 units PO DAILY 07/09/15 mcg (1,000 unit) tablet prednisone 5 mg tablet 5 mg PO DAILY PRN PRN 08/20/16 betamethasone dipropionate 0.05 % 15 g topical BID 11/17/17 topical ointment cyanocobalamin (vitamin B-12) 1,200 mcg PO DAILY 11/17/17 2,500 mcg tablet furosemide 20 mg tablet 10 mg PO DAILY 09/03/23 Current Visit Medications: Current Medications Generic Name Dose Route Start Last Admin Trade Name Freq PRN Reason Stop Dose Admin Ringer's Solution 1,000 mls @ 125 mls/hr 02/22/25 06:00 02/22/25 06:56 IV 02/22/25 23:59 125 mls/hr INFUSION SUZAN Administration IV Miscellaneous Supplies 1 each 02/22/25 06:00 Iv Access IV 02/22/25 23:59 DIRECTED SUZAN Sodium Chloride 0 ml 02/22/25 06:00 Normal Saline Flush 10 Ml Syr IV 02/22/25 23:59 PRN PRN Sodium Chloride 0 ml 02/22/25 06:00 Normal Saline 10 Ml Vial IJ 02/22/25 23:59 DIRECTED PRN Sterile Water 0 ml 02/22/25 06:00 Water,Injection,Sterile 10 Ml Vial IJ 02/22/25 23:59 DIRECTED PRN PFSH Active Problems Active Problems: Problem Status Onset Code Left lower quadrant abdominal swelling, mass and lump Acute R19.04 Pelvic mass in female Acute R19.00 Left ovarian cyst Acute N83.202 Endometrial thickening on ultrasound Acute R93.89 Primary hyperparathyroidism Acute 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.0 Oral leukoplakia Acute K13.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, external ear Acute H90.2 Impacted cerumen, right ear Acute H61.21 Hypertension Chronic Medical History Medical History Fatigue Hypercalcemia Essential hypertension Lichen planus Atopic dermatitis Non-toxic uninodular goiter Over weight Left sided sciatica Stress fracture of foot Preretinal fibrosis Shingles Vitamin D deficiency Leg weakness, bilateral Eczema Vertigo Prediabetes Hyperparathyroidism Thyroid nodule Chronic fatigue Vitamin B 12 deficiency Right thyroid nodule Preretinal fibrosis, bilateral Hyperlipidemia Ataxia Gout Oral lichen planus Surgical History Surgical History History of endometrial biopsy History of wisdom tooth extraction History of tonsillectomy Colonoscopy - IV Sedation 2004 Tobacco Smoking/Tobacco Use Status: Never Passive smoking exposure: No Alcohol Alcohol Intake: former Substance Use Substance use: Never Substance use type: does not use Vital Signs and Lab Results Vital Signs Most Recent Vital Signs in EMR: Most Recent Vital Signs Temp Pulse Resp BP Pulse Ox 36.5 C 77 16 139/63 99 02/22/25 06:36 02/22/25 06:36 02/22/25 06:36 02/22/25 06:36 02/22/25 06:36 Lab Results Blood Type / Crossmatch: Antibody Screen NEGATIVE 02/20/25 Complete Blood Count: WBC, (4.4-10.8) 8.41 10^3/uL 02/20/25, 11:05 RBC, (3.93-5.22) 4.44 10^6/uL 02/20/25, 11:05 Hgb, (11.2-15.7) 12.8 g/dL 02/20/25, 11:05 Hct, (36.0-46.0) 40.4 % 02/20/25, 11:05 Plt Count, (130-400) 198 10^3/uL 02/20/25, 11:05 Anesthesia Assessment and Plan Anesthesia History Personal History: No History of Anesthesia Complications Family History: No Family History of Anesthesia Complications Exercise Tolerance Exercise Tolerance: Metabolic Equivalents>4 Pertinent Negatives Pertinent Negatives: No Symptoms of GERD Cardiac & Pulmonary Exam Cardiac Exam: Normal S1/S2 Heart Sounds Pulmonary Exam: Clear Bilateral Breath Sounds Implantable Cardiac Device Does patient have a Pacemaker or an ICD?: No Airway Exam Known Difficult Airway: No Mallampati Class: 3 Mouth Opening: Normal (> 3cm) Thyromental Distance: Greater than 3 cm Neck Range of Motion: Full ROM Neck Circumference: Normal Teeth Condition: Generalized Poor Dentition ASA Classification ASA Score: ASA 2 Emergency Case?: No NPO Status NPO Status: NPO Clears >2 hours, Solids >8 hours Anesthesia Plan Resuscitation Status: Full Code Anesthesia Technique: General Anesthesia Airway Planned: Natural Airway Monitors Used: Standard Monitors
[2025-02-22] MEDS: Lidocaine 2% Jelly 6 ML SYR (07:51)
--- NOTE | 2025-02-22 07:57 | ENDOMET_PTH ---
PATIENT: Deb Mccall LOC: [facility] U#:[id number] AGE/SX: 79/F ROOM: RE02/22/[address]: Marietta Silveira DO : 1945 BED: DIS: 02/22/2025 SPEC #: [id number] RECD: 02/22/25 12:38 STATUS: DORITA RE #: [id number] CHARLES: 02/22/25 07:[address]: Marietta Silveira DEPT: Surgical Specimen RECD BY: Sarita German ENTERED: 02/22/25 12:40 SP TYPE: Endomet OTHR DR: Tomeka Castañeda Tissues: 1 - ENDOMETRIUM BX/CURRETTE 2 - ENDOCERVICAL BX/CURRETTE Procedures: GROSS AND MICRO LEVEL 4 Comments: [id number]
[2025-02-22 08:11] VITALS: BP 114/59; PULSE 78; RESP 16; TEMP 35.9; O2SAT 98
--- NOTE | 2025-02-22 08:22 | ROE_ITS ---
Operative Note Operative Note PRE-OP DIAGNOSIS: Thickened endometrium, lichen planus POST-OP DIAGNOSIS: same Endometrial polyp PROCEDURE: Hysteroscopy, dilation and curettage with removal of endometrial polyp SURGEON: Marietta Silveira ANESTHESIA TYPE: General:No Airway Refer to Anesthesia Record ESTIMATED BLOOD LOSS: 5 PATHOLOGY: other (1. Endometrial curettage 2. Endocervical curettage) COMPLICATIONS: None Patient was transported to: same day Patient's condition: stable Indications: Thickened endometrium Findings: Small, 0.5 x 2 cm endometrial polyp. Smooth irregular endometrium and endocervix. Significant vaginal stenosis and erythema due to lichen planus Procedure Description: After full informed consent was obtained, patient was taken the operating suite with an IV running. She was placed in the supine position and general anesthesia administered. She was then placed in the modified dorsolithotomy position and prepped and draped in the usual sterile fashion. She had pneumatic compression stockings for DVT prophylaxis and no antibiotic prophylaxis was warranted. A timeout was held. Lidocaine gel was used at the vaginal introitus to help and post operative discomfort. A speculum was inserted into the vaginal vault. A single-tooth tenaculum was used to grasp the anterior lip of the cervix and cervical os dilated to the point that a 4 mm hysteroscope could be passed without difficulty. With instillation of normal saline, the entire endometrial cavity was inspected. The endocervical and endometrial cavities were smooth and regular. There is noted to be a small, 0.5 by approximately 2 cm endometrial polyp present. At this point, the hysteroscope portion was discontinued and a fractional dilation and curettage performed. First specimen was endocervical curettage for scant tissue second specimen was endometrial curettage with endometrial polyp that had been removed with a Shade stone polyp forcep. At this point, the procedure was discontinued. Single-tooth tenaculum was removed from the cervix and puncture sites were hemostatic. Speculum was removed. There was a small area of separation at the posterior hymenal ring which was hemostatic. 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 She was returned to the dorsal supine position and awoken anesthesia without difficulty. She was taken to the same-day surgical area in stable condition. Fluids: Crystalloid per anesthesia +15 cc of normal saline deficit at hysterosco pe Complications: None apparent Findings: Smooth regular endocervix and endometrial lining. Small endometrial polyp, removed. Pathology: 1. Endometrial curettage with polyp 2. Endocervical curettage. EBL: 5 mL Date of Procedure: 02/22/25
--- NOTE | 2025-02-22 08:26 | W.ANESPOSTOP ---
Postoperative Evaluation Date, Time and Location Date Performed: 02/22/25 Time Performed: : Patient Location: Day Surgery Unit Vital Signs Most Recent Imported Vital Signs: Most Recent Vital Signs Temp Pulse Resp BP Pulse Ox 35.9 C L 78 16 114/59 L 98 02/22/25 08:11 02/22/25 08:11 02/22/25 08:11 02/22/25 08:11 02/22/25 08:11 Pain Score Most Recent Pain Score: Most Recent Pain Score Pain Level 0 02/22/25 08:11 Assessment Mental Status: Awake (Alert & Oriented to Patient Baseline) Airway and Respiratory Function: Patent airway with normal (patient baseline) respiratory exam Cardiovascular Function: Hemodynamically Stable Hydration Status: Adequately Hydrated Nausea & Vomiting: No Nausea or Vomiting Pain: Pain is tolerable per patient (Reports burning in the inguinal region but states it is tolerable. ) Peripheral Nerve Block: Patient did not receive a nerve block
[2025-02-22 08:48] VITALS: BP 130/54; PULSE 75; RESP 14; TEMP 36.1; O2SAT 99
== END 2025-02-22 09:12 | disposition home or self-care (01) ==
PROVIDERS: PCP Family Medicine; Visit Provider Obstetrics & Gynecology
PROC: 0UDB8ZZ Extraction of Endometrium, Via Natural or Artificial Opening Endoscopic (ICD-10-PCS; CPT 58558; principal; 2025-02-22 07:30)
DX: R93.89 Abnormal findings on diagnostic imaging of other specified body structures (principal); L43.9 Lichen planus, unspecified
CPT/HCPCS: 58558; 88305; J0131; J2704; J3010

== ENCOUNTER 2025-02-28 15:50 | Outpatient (REF) | payer MEDICARE, SELFPAY | END 2025-02-28 15:51 | disposition home or self-care (01) | LOC: LBN 15:50 | PROVIDERS: PCP Family Medicine; Visit Provider Obstetrics & Gynecology | DX: R30.0 Dysuria (principal) | CPT/HCPCS: 87077; 87086; 87186 ==